=== PATIENT | female | born 1955 | race American Indian/Alaskan Native ===

== ENCOUNTER 2017-02-14 05:50 | Day surgery (SDC) | payer MEDICARE ==
[2017-02-14] MEDS ORDERED: ANCEF/STERILE WATER 2 GM/20 ML 2 GM/20 ML SYRINGE IV NR (06:00)
[2017-02-14] MEDS ORDERED: NACL 0.9% 1000 ML 1,000 ML IV SCH (06:00)
[2017-02-14] MEDS ORDERED: NACL BACTERIOSTATIC INFILTRATI ONE (06:35)
[2017-02-14 07:12] LABS: Eosinophils % (Auto) 2.9 % (0.0-4.3); Hematocrit 35.4 % (30.3-42.9); Hemoglobin 11.2 gm/dl (10.1-14.3); Mean Corpuscular HGB Conc 32 % (30-34); Mean Corpuscular Hemoglobin 28 pg (28-32); Mean Corpuscular Volume 88 fl (79-97); Platelet Count 184 K/mm3 (140-440); Red Blood Count 4.02 M/mm3 (3.65-5.03); Red Cell Distribution Width 19.4 % (13.2-15.2); White Blood Count 4.3 K/mm3 (4.5-11.0)
[2017-02-14 07:18] LABS: BUN/Creatinine Ratio 6.8; Calcium 7.7 mg/dL (8.4-10.2); Chloride 97.2 mmol/L (98-107); Potassium 4.5 mmol/L (3.6-5.0)
--- NOTE | 2017-02-14 07:24 | Anesthesia Day of Surgery ---
Anesthesia Day of Surgery - Day of Surgery Patient Examined: Yes Patient H&P Reviewed: Yes Patient is NPO: Yes
--- NOTE | 2017-02-14 07:24 | Anesthesia Consultation ---
Anesthesia Consult and Med Hx Date of service: 02/14/17 - Airway Anesthetic Teeth Evaluation: Poor ROM Head & Neck: Adequate Mental/Hyoid Distance: Adequate Mallampati Class: Class II Intubation Access Assessment: Good - Pulmonary Exam CTA: Yes - Cardiac Exam Cardiac Exam: RRR - Pre-Operative Health Status ASA Pre-Surgery Classification: ASA4 Proposed Anesthetic Plan: General - Cardiovascular System Hx Hypertension: Yes - Central Nervous System Hx Psychiatric Problems: No - Endocrine Hx Renal Disease: Yes Hx Insulin Dependent Diabetes: Yes (no meds) - Hematic Hx Anemia: Yes - Other Systems Hx Cancer: No - Additional Comments Anesthesia Medical History Comments: Patient states that she no longer requires insulin because her diabetes is sufficiently controlled by diet. Poor dentition. No previous anesthesia complications.
[2017-02-14] MEDS ORDERED: MARCAINE 0.25% INFILTRATI ONE ×3 (07:33→09:03)
[2017-02-14] MEDS ORDERED: HEPARIN 10,000 UNITS/10 ML ONE ×2 (07:34→10:07)
[2017-02-14] MEDS ORDERED: NACL 0.9% 500 ML 500 ML ONE (07:34)
[2017-02-14] MEDS ORDERED: DIPRIVAN 10 MG/ML IV ONE (07:42)
[2017-02-14] MEDS ORDERED: DILAUDID ONE (07:42)
[2017-02-14] MEDS ORDERED: PEPCID PO NR (08:00)
[2017-02-14] MEDS ORDERED: VERSED IV NR (08:00)
[2017-02-14] MEDS ORDERED: NACL 0.9% IR ONE (09:03)
[2017-02-14] MEDS ORDERED: HEPARIN 10,000 UNITS/10 ML 2,000 UNIT in NACL 0.9% 500 ML 500 ML IR ONE (09:04)
[2017-02-14] MEDS ORDERED: XYLOCAINE MPF 2% ONE (10:08)
[2017-02-14] MEDS ORDERED: DECADRON ONE (10:09)
[2017-02-14] MEDS ORDERED: THROMBIN (BOVINE) TP ONE (10:51)
[2017-02-14] MEDS ORDERED: GELFOAM TP ONE ×2 (10:51→11:01)
[2017-02-14] MEDS ORDERED: THROMBIN SPRAYKIT (BOVINE) TP ONE (11:01)
[2017-02-14] MEDS ORDERED: ZOFRAN ONE (11:13)
--- NOTE | 2017-02-14 11:26 | Short Stay Summary ---
Short Stay Documentation - History H&P: obtained from office - Allergies and Medications Current Medications: Allergies No Known Allergies Allergy (Unverified 02/09/17 16:42) Home Medications Medication Instructions Recorded Confirmed Last Taken Type Carvedilol 02/14/17 02/14/17 04:15 History Lasix TAB 02/14/17 02/13/17 20:00 History amLODIPine 02/14/17 02/14/17 04:15 History hydrALAZINE 02/14/17 02/14/17 04:15 History Active Medications Famotidine (Pepcid) 20 mg PO PREOP NR Stop: 02/14/17 23:29 Last Admin: 02/14/17 07:30 Dose: 20 mg Cefazolin Sodium (Ancef/Sterile Water 2 Gm/20 Ml) 2 gm in 20 mls @ 80 mls/hr IV PREOP NR PRN Reason: Protocol Stop: 02/14/17 23:59 Sodium Chloride (Nacl 0.9% 1000 Ml) 1,000 mls @ 42 mls/hr IV DIRECT CARLEEN Last Admin: 02/14/17 07:30 Dose: 42 mls/hr Midazolam HCl (Versed) 2 mg IV PREOP NR Stop: 02/14/17 23:59 Last Admin: 02/14/17 07:31 Dose: 2 mg - Physical exam Rectal Exam: tenderness - Brief post op/procedure progress note Pre-op diagnosis: ESRD, pooly maturing left UE fistula Post-op diagnosis: same Procedure: Left UE AV fistula elevation/ revision Anesthesia: GETA Findings: Patent fistula Surgeon: HOME OLIVA Rubber Compounder Formulator: DELONTE BYRNE Estimated blood loss: minimal Condition: stable - Hospital course Hospital course: Patient brought in as outpatient for av access revision. Procedure performed without complication. Observed in RR prior to discharge. - Disposition Condition at discharge: Good Disposition: DC-01 TO HOME OR SELFCARE - Discharge Diagnoses (1) Malfunction of arteriovenous dialysis fistula Status: Acute Qualifiers: Encounter type: E Short Stay Discharge Plan Activity: avoid flexion Diet: low salt Wound: open to air, keep clean and dry Special Instructions: no heavy lifting Additional Instructions: Keep arm elevated on pillows Use sponge ball to maintain range of motion Call for problems Follow up with: PRIMARY CARE, [Primary Care Provider] - 7 Days
[2017-02-14] MEDS ORDERED: APRESOLINE ONE (11:54)
[2017-02-14] MEDS ORDERED: APRESOLINE IV NR (12:00)
--- NOTE | 2017-02-14 12:19 | Post Anesthesia Evaluation ---
- Post Anesthesia Evaluation Patient Participated: Yes Airway Patent: Yes Stable Respiratory Function: Yes Nausea/Vomiting: No Temp > 96.8F: Yes Pain Manageable: Yes Adequeate Hydration: Yes Anesthesia Complications: No Block Receding Appropriately: Not Applicable Patient on Ventilator: No
[2017-02-14 12:36] VITALS: BP 145/76
--- NOTE | 2017-02-16 15:15 | Operative Report ---
PREOPERATIVE DIAGNOSIS: 1. End-stage renal disease. 2. Poorly maturing left AV fistula - brachiobasilic. POSTOPERATIVE DIAGNOSES: 1. End-stage renal disease. 2. Poorly maturing left AV fistula - brachiobasilic. SURGEON: Ran Cerrato MD PROCEDURE: AV fistula revision - elevation. COMPLICATIONS: None. FINDINGS: Suitable vein for fistula elevation. Successful elevation, palpable thrill postoperatively. INDICATIONS: This patient has end-stage renal disease and uses a Perm-A-Cath for dialysis. She has an immature fistula and needs to be elevated. She was brought to surgery for this purpose. DETAILS OF PROCEDURE: Consent was obtained. The patient was taken to the operating room and placed in supine position. Appropriate levels of anesthesia was provided. The patient's arm was prepped and draped in sterile fashion. The procedure began with an incision on the inner aspect of the arm as an extension of the old scar. We proceeded on with dissection through the subcutaneous tissue. The basilic vein was identified. The fistula had a strong thrill. The incision was extended toward the axilla and we were able to dissect through the subcutaneous tissue and uncover the vein along its tract. Connections with the deep system were identified, isolated, ligated, and clipped. Appropriate hemostasis was maintained. We proceeded on with dissection of the deep system. Again, branches were ligated. Eventually, we encircled the vessel with a vessel loop and controlled the inflow with a right angle DeBakey clamp. We then transected the fistula transversely and using Stormy-Wick tunneler to tunnel the vessel in the superficial aspect of the inner arm. The space was created. The vein was brought through the superficial tunnel, and we brought the distal aspect of the vein to the proximal inflow. We performed an end-to-end anastomosis in this fashion. The fistula had a comfortable, there was palpable thrill postoperatively. The subcutaneous tissue was made hemostatic with electrocautery. Clips were used as necessary. There were no complications. The patient was awakened from anesthesia and taken to the recovery room having suffered no complications. The subcutaneous tissue was closed with 3-0 Vicryl. We used Gelfoam and thrombin to help with hemostasis. The subcutaneous tissue was closed with 3-0 Vicryl. A sterile dressing was applied. The patient was taken to the recovery room having suffered no complications. JOB# [id number] SENDY/YUMIKO
== END 2017-02-14 12:50 | disposition home or self-care (01) ==
LOC: OR 05:50
PROVIDERS: ATTEND Surgery Vascular Surgery
DX: T82.590A Other mechanical complication of surgically created arteriovenous fistula, initial encounter (principal); E11.22 Type 2 diabetes mellitus with diabetic chronic kidney disease; I13.2 Hypertensive heart and chronic kidney disease with heart failure and with stage 5 chronic kidney disease, or end stage renal disease; N18.6 End stage renal disease; I50.9 Heart failure, unspecified; D64.9 Anemia, unspecified; E78.00 Pure hypercholesterolemia, unspecified; Z99.2 Dependence on renal dialysis; Z86.73 Personal history of transient ischemic attack (TIA), and cerebral infarction without residual deficits; Z85.9 Personal history of malignant neoplasm, unspecified; Z98.890 Other specified postprocedural states; Z79.899 Other long term (current) drug therapy; Y83.2 Surgical operation with anastomosis, bypass or graft as the cause of abnormal reaction of the patient, or of later complication, without mention of misadventure at the time of the procedure
CPT/HCPCS: 36415; 36832; 80048; 82962; 85025; A4649; J0360; J0690; J1100; J1170; J1644; J2250; J2405; J2704; J7030; J7040